=== PATIENT | female | born 1960 | race Caucasian/White ===

== ENCOUNTER → 2020-05-18 | Outpatient (CLI) | payer BC ==
--- NOTE | 2020-05-19 13:09 | MM ---
Reason for exam: screening (asymptomatic). Last mammogram was performed 10 years ago. History: Patient is postmenopausal. Benign stereotactic core biopsy of the left breast, April 18, 2004. Implant Removal of both breasts, 1999. Took hormonal contraceptives for 19 years beginning at age 15. Physical Findings: A clinical breast exam by your physician is recommended on an annual basis and results should be correlated with mammographic findings. MG 3D Screening Mammo W/Cad Bilateral CC and MLO view(s) were taken. Prior study comparison: February 13, 2017, mammogram. February 04, 2017, mammogram. March 01, 2014, mammogram. The breast tissue is heterogeneously dense. This may lower the sensitivity of mammography. Finding: There is a typically benign 14 mm indistinct round mass in the upper outer quadrant, posterior position of the right breast. There is a benign appearing 6mm round circumscribed area medial upper right posterior breast 10cm from the nipple. New finding since February 13, 2017, February 04, 2017, and March 01, 2014. ASSESSMENT: Incomplete: need additional imaging evaluation, BI-RAD 0 RECOMMENDATION: Ultrasound of the right breast. [facility] will attempt to contact patient to return for ultrasound.
== END | disposition home or self-care (01) ==
LOC: RADMAMWWP 15:31
PROVIDERS: ATTEND Family Medicine
DX: Z12.31 Encounter for screening mammogram for malignant neoplasm of breast (principal)
CPT/HCPCS: 77063; 77067

== ENCOUNTER 2020-06-01 10:51 | Day surgery (SDC) | payer BC ==
[2020-05-31 10:58] VITALS: BMI 27.9
[2020-06-01 11:24] VITALS: TEMP 98
[2020-06-01] MEDS ORDERED: LACTATED RINGERS 1,000 ML IV ONE (11:35)
[2020-06-01] MEDS ORDERED: LIDOCAINE 1% (10MG/ML) FOR IV START INTRADERMA ONE (11:36)
[2020-06-01] MEDS ORDERED: PROPOFOL 10 MG/ML 20 ML VIAL IV ONE (12:02)
[2020-06-01] MEDS ORDERED: LIDOCAINE 1% INJ 10MG/ML (20 ML MDV) ONE (12:02)
--- NOTE | 2020-06-01 12:10 | P.PCN ---
Date of Procedure: 06/01/20 Procedure(s) Performed: BRIEF HISTORY: Patient is a 59-year-old, pleasant, female scheduled for an upper endoscopy as a part of evaluation of severe heartburn and passive regurgitation for the last several months duration. She was recently started on omeprazole 20 mg daily about few days ago and is feeling much better. She is scheduled for an upper endoscopy to rule out complicated reflux disease.. PROCEDURE PERFORMED: Esophagogastroduodenoscopy with biopsy. PREOPERATIVE DIAGNOSIS: Gastroesophageal reflux symptoms. IV sedation per anesthesia. PROCEDURE: After informed consent was obtained, the patient was brought into the endoscopy unit. IV sedation was administered by Anesthesia under continuous monitoring. Initially the Olympus GIF-140 video endoscope was inserted into the mouth. Esophagus intubated without any difficulty. It was gradually advanced into the stomach and duodenum and carefully examined. The bulb and the second part of the duodenum appeared normal. The scope at this time was withdrawn to the stomach, adequately insufflated with air, and upon careful examination, muc quique of the antrum, body, had scattered erosions and biopsies were done from this area. The cardia and the fundus appeared normal. The scope was then withdrawn into the esophagus. The GE junction was located at 40 cm from the incisors. The esophagus appeared normal. There were no erosions or ulcerations seen and the patient tolerated the procedure well. IMPRESSION: 1. Scattered erosions in the distal body and proximal antrum of the stomach status post biopsies. 2. a normalppearing esophagus with no evidence of esophagitis or Sheppard's esophagus RECOMMENDATIONS: The findings of this examination were discussed with the patient as well as a family. She was advised to follow with the biopsy results. She will continue with omeprazole 20 mg daily and follow antireflux measures..
[2020-06-01 12:20] VITALS: RESP 20
[2020-06-01 12:31] VITALS: BP 125/76; PULSE 45
[2020-06-01] MEDS ORDERED: ONDANSETRON ODT 4 MG TAB PO ONE (12:49)
== END 2020-06-01 12:53 | disposition home or self-care (01) ==
LOC: ORWHC2ENDO 10:51
PROVIDERS: ATTEND Internal Medicine Gastroenterology
DX: K29.50 Unspecified chronic gastritis without bleeding (principal); K25.9 Gastric ulcer, unspecified as acute or chronic, without hemorrhage or perforation; K21.9 Gastro-esophageal reflux disease without esophagitis; Z79.899 Other long term (current) drug therapy
CPT/HCPCS: 88305; 43239; J2001; J2704

== ENCOUNTER → 2020-06-09 | Outpatient (CLI) | payer BC ==
--- NOTE | 2020-06-09 10:45 | USB ---
Reason for exam: additional evaluation requested from abnormal screening. History: Patient is postmenopausal. Benign stereotactic core biopsy of the left breast, April 18, 2004. Implant Removal of both breasts, 1999. Took hormonal contraceptives for 19 years beginning at age 15. Physical Findings: Nurse Summary: 0.5cm round sebaceous cyst right breast 1 o'clock, bilateral tenderness (nurse mj). US Breast Workup RT Technologist: Chey Kraus Right complete breast ultrasound includes all four quadrants, the retroareolar region and axilla. Finding demonstrates a 0.5 x 0.5 x 0.4cm circular, cystic lesion at 2 o'clock consistent with sebaceous cyst and a 1.2 x 0.8 x 0.7cm cystic cluster at 6 o'clock. These results were verbally communicated with the patient and result sheet given to the patient on 06/09/20. ASSESSMENT: Benign, BI-RAD 2 RECOMMENDATION: Return to routine screening mammogram schedule for both breasts. Manage patient on a clinical basis.
== END | disposition home or self-care (01) ==
LOC: RADUSWWP 09:02
PROVIDERS: ATTEND Family Medicine
DX: R92.8 Other abnormal and inconclusive findings on diagnostic imaging of breast (principal)